=== PATIENT | female | born 1985 | race African-American/Black ===

== ENCOUNTER 2021-01-17 10:25 | Emergency (ER) | payer MEDICAID ==
[~2021-01-17] VITALS: Ht 185.4 cm; Wt 115.0 kg
[2021-01-17] MEDS ORDERED: FUROSEMIDE 20MG TABLET PO ONE (11:45)
[2021-01-17 13:12] LABS: CHLORIDE 109 mEq/L (98-107)
[2021-01-17 13:13] LABS: HCG SCREEN NEGATIVE
[2021-01-17 13:20] LABS: BASOPHILS % 0.3 % (0.0-2.0); EOSINOPHILS % 3.1 % (0.0-5.0); HEMATOCRIT. 36.4 % (36.0-48.0); HEMOGLOBIN. 11.5 g/dL (12.0-16.0); LYMPHOCYTES % 39.3 % (20.0-50.0); MEAN CORPUSCULAR VOLUME 69.7 fL (81.0-99.0); MEAN PLATELET VOLUME 9.1 fl (7.4-10.4); MONOCYTES % 7.8 % (2.0-8.0); NEUTROPHILS % 49.5 % (40.0-76.0); PLATELET 227 x1000/uL (130-400); RED BLOOD CELL COUNT 5.22 mill/uL (4.2-5.4)
[2021-01-17] MEDS ORDERED: FURO-152 MT (13:29)
[2021-01-17 13:30] VITALS: BP 133/78
[2021-01-17 14:03] LABS: PLATELET ESTIMATE NORMAL
== END 2021-01-17 13:50 | disposition home or self-care (01) ==
LOC: ER 10:25
DX: R60.0 Localized edema (principal); R79.89 Other specified abnormal findings of blood chemistry; R03.0 Elevated blood-pressure reading, without diagnosis of hypertension
CPT/HCPCS: 36415; 80053; 83880; 84703; 85025; 93970; 99284